=== PATIENT | female | born 1960 | race African-American/Black ===

== ENCOUNTER 2017-12-15 05:35 | Inpatient (IN) ==
[2017-11-30 12:25] LABS: Basophils % 0.6 % (0.0-0.8); Eosinophils # 0.1 10*3/uL (0.0-0.87); Eosinophils % 2.5 % (0.00-10.9); Hematocrit 40.6 VOL% (35.7-47.0); Hemoglobin 13.6 GM/DL (12.0-16.0); Immature Granulocytes % 0.2 %; Immature Granulocytes Absolute 0.01 #; Lymphocytes # 2.5 10*3/uL (1.4-4.0); Lymphocytes % 48.3 % (21.3-54.2); Mean Corpuscular HGB Conc 33.5 GM/DL (32-36); Mean Corpuscular Hemoglobin 28 PG (27-34); Mean Corpuscular Volume 83.2 FL (87-102); Monocytes # 0.4 10*3/uL (0.11-0.8); Monocytes % 8.3 % (1.7-12.7); Neutrophils # 2.1 10*3/uL (1.4-7.4); Neutrophils % 40.1 % (38.7-73.9); Platelet Count 249 T/CUMM (130-400); Red Blood Count 4.88 MC/CUMM (3.8-5.5); Red Cell Distribution Width 15.1 % (9.3-17.3); White Blood Count 5.2 T/CUMM (4-12)
[2017-11-30 12:35] LABS: INR 0.9; Partial Thromboplastin Time 27.3 SECS (0-40)
[2017-11-30 12:39] LABS: Apearance,Urine CLEAR (Clear); Bilirubin,Urine Negative (Negative); Blood, Urine Negative (Negative); Glucose,Urine (UA) Negative (Negative); Ketones,Urine Negative (Negative); Mucus,Urine Occasional /LPF (Occasional); Nitrite,Urine Negative (Negative); Protein,Urine Negative; RBC,Urine 1 /HPF (0-4); Squamous Epithelial Cell,Urine Occasional /HPF (0-10); Urine Color Yellow (Yellow); Urine Specific Gravity 1.016 (1.001-1.035); Urine Urobilinogen < 2.0 EU/DL (0.2-1.0); WBC,Urine 2 /HPF (0-6)
[2017-11-30 12:56] LABS: Alanine Aminotransferase 33 U/L (13-56); Albumin 3.9 G/DL (3.4-5.0); Alkaline Phosphatase 45 U/L (45-117); Aspartate Amino Transferase 24 U/L (0-37); Bilirubin,Total < 0.39 MG/DL (0.2-1.0); Blood Urea Nitrogen 19 MG/DL (7-18); Glucose 81 MG/DL (74-106); Osmolality,Calculated 279.4 MOS/KG (273-304); Potassium 4.3 MMOL/L (3.5-5.1); Sodium 140 MMOL/L (136-145); Total Protein 7.6 G/DL (6.4-8.3)
[2017-12-15] MEDS ORDERED: VANCOMYCIN INJ 1,000 MG in SODIUM CHLORIDE 0.9% 250 ML IV ONE (06:00)
[2017-12-15] MEDS ORDERED: ceFAZolin 2,000 MG in PREMIX 1 EACH IV ONE (06:00)
[2017-12-15] MEDS ORDERED: BUPIVACAINE SPINAL 0.75% 2 ML AMP SPINAL ONE (06:17)
[2017-12-15] MEDS ORDERED: ROPIVACAINE 0.5% 30 ML VIAL ONE (06:18)
[2017-12-15] MEDS ORDERED: VANCOMYCIN 1,000 MG VIAL ONE (06:27)
[2017-12-15] MEDS ORDERED: MIDAZOLAM 2 MG/2 ML VIAL ONE ×2 (06:40→09:03)
[2017-12-15] MEDS ORDERED: LIDOCAINE 1% 5 ML VIAL ONE (06:40)
[2017-12-15] MEDS ORDERED: BACITRACIN OINT 0.9 GM PACK TOP ONE (06:51)
[2017-12-15] MEDS ORDERED: LACTATED RINGERS 1,000 ML IV SCH (07:00)
[2017-12-15] MEDS ORDERED: oxyCODONE/ACETAMINOPHEN 5-325 MG TABLET PO PRN (08:33)
[2017-12-15] MEDS ORDERED: CETIRIZINE 10 MG TABLET PO PRN (08:33)
[2017-12-15] MEDS ORDERED: oxyCODONE IR 5 MG TABLET PO PRN ×2 (08:33)
[2017-12-15] MEDS ORDERED: MAGNESIUM HYDROXIDE SUSP 30 ML UDCUP PO PRN (08:33)
[2017-12-15] MEDS ORDERED: HYDROmorphone 2 MG/1 ML VIAL IV PRN ×2 (08:33)
[2017-12-15] MEDS ORDERED: ONDANSETRON 4 MG/2 ML VIAL IV PRN (08:33)
[2017-12-15] MEDS ORDERED: DEXAMETHASONE 10 MG/1 ML VIAL ONE (09:03)
[2017-12-15] MEDS ORDERED: PROPOFOL 500 MG/50 ML BOTTLE IV ONE (09:03)
[2017-12-15] MEDS ORDERED: KETOROLAC 30 MG/1 ML VIAL ONE (09:19)
[2017-12-15] MEDS: KETOROLAC 30 MG/1 ML VIAL IV SCH ×3 (09:20→20:45)
[2017-12-15] MEDS: LACTATED RINGERS 1,000 ML IV SCH ×3 (10:27→23:39)
[2017-12-15] MEDS: DOCUSATE SODIUM 100 MG CAPSULE PO SCH ×2 (10:40→20:44)
[2017-12-15] MEDS: ACETAMINOPHEN 500 MG TABLET PO SCH ×3 (12:49→23:38)
[2017-12-15] MEDS: ceFAZolin 2,000 MG in PREMIX 1 EACH IV SCH ×2 (13:09→20:46)
[2017-12-15] MEDS: ZALEPLON 5 MG CAPSULE PO PRN (20:44)
[2017-12-16] MEDS: KETOROLAC 30 MG/1 ML VIAL IV SCH (03:07)
[2017-12-16] MEDS: FONDAPARINUX 2.5 MG/0.5 ML SYRINGE SUBCUT SCH (03:09)
[2017-12-16 05:10] LABS: Basophils % 0.1 % (0.0-0.8); Hematocrit 31.8 VOL% (35.7-47.0); Hemoglobin 10.5 GM/DL (12.0-16.0); Immature Granulocytes % 0.6 %; Immature Granulocytes Absolute 0.07 #; Lymphocytes # 1.4 10*3/uL (1.4-4.0); Lymphocytes % 10.9 % (21.3-54.2); Mean Corpuscular Hemoglobin 27 PG (27-34); Mean Platelet Volume 11.7 FL (9.6-12.0); Monocytes # 0.9 10*3/uL (0.11-0.8); Monocytes % 6.9 % (1.7-12.7); Neutrophils # 10.1 10*3/uL (1.4-7.4); Neutrophils % 81.5 % (38.7-73.9); Platelet Count 224 T/CUMM (130-400); Red Blood Count 3.88 MC/CUMM (3.8-5.5); Red Cell Distribution Width 14.7 % (9.3-17.3); White Blood Count 12.4 T/CUMM (4-12)
[2017-12-16] MEDS: ACETAMINOPHEN 500 MG TABLET PO SCH (05:36)
[2017-12-16 05:53] LABS: Calcium 8.3 MG/DL (8.5-10.1)
[2017-12-16] MEDS ORDERED: TRANEXAMIC ACID 1,000 MG/10 ML VIAL ONE (07:32)
[2017-12-16] MEDS: DOCUSATE SODIUM 100 MG CAPSULE PO SCH ×2 (09:34→20:20)
[2017-12-16] MEDS: oxyCODONE/ACETAMINOPHEN 5-325 MG TABLET PO PRN ×3 (11:43→20:21)
[2017-12-16] MEDS: diphenhydrAMINE CAP 25 MG CAPSULE PO PRN ×2 (14:19→20:20)
[2017-12-16] MEDS: CELECOXIB 200 MG CAPSULE PO SCH (15:21)
[2017-12-17] MEDS: ZALEPLON 5 MG CAPSULE PO PRN (00:22)
[2017-12-17] MEDS: FONDAPARINUX 2.5 MG/0.5 ML SYRINGE SUBCUT SCH (00:23)
[2017-12-17] MEDS: oxyCODONE/ACETAMINOPHEN 5-325 MG TABLET PO PRN ×3 (00:23→08:38)
[2017-12-17] MEDS: diphenhydrAMINE CAP 25 MG CAPSULE PO PRN (04:27)
[2017-12-17 05:35] LABS: Basophils % 0.2 % (0.0-0.8); Eosinophils # 0.1 10*3/uL (0.0-0.87); Eosinophils % 0.7 % (0.00-10.9); Hematocrit 33.5 VOL% (35.7-47.0); Hemoglobin 11.1 GM/DL (12.0-16.0); Immature Granulocytes % 0.8 %; Immature Granulocytes Absolute 0.09 #; Lymphocytes # 2.4 10*3/uL (1.4-4.0); Lymphocytes % 22.4 % (21.3-54.2); Mean Corpuscular HGB Conc 33.1 GM/DL (32-36); Mean Corpuscular Hemoglobin 27 PG (27-34); Mean Corpuscular Volume 82.7 FL (87-102); Monocytes # 0.7 10*3/uL (0.11-0.8); Monocytes % 6.5 % (1.7-12.7); Neutrophils # 7.5 10*3/uL (1.4-7.4); Neutrophils % 69.4 % (38.7-73.9); Platelet Count 229 T/CUMM (130-400); Red Blood Count 4.05 MC/CUMM (3.8-5.5); Red Cell Distribution Width 15.2 % (9.3-17.3); White Blood Count 10.9 T/CUMM (4-12)
[2017-12-17] MEDS: CELECOXIB 200 MG CAPSULE PO SCH (08:38)
[2017-12-17] MEDS: DOCUSATE SODIUM 100 MG CAPSULE PO SCH (08:38)
[2017-12-17 11:39] VITALS: BP 144/73
== END 2017-12-17 12:21 | disposition home health service (06) | DRG 470 ==
LOC: N.OR 05:35 → N.SDSINP 05:36 → N.3E 08:33
PROVIDERS: ADMIT Orthopaedic Surgery; ATTEND Orthopaedic Surgery

== ENCOUNTER 2020-08-19 11:23 | Inpatient (IN) ==
[2020-08-19] MEDS ORDERED: ASPIRIN 325 MG TABLET PO STA (12:10)
[2020-08-19] MEDS ORDERED: METOPROLOL TARTRATE 5 MG/5 ML VIAL IV STA (12:11)
[2020-08-19 12:18] LABS: Basophils % 0.6 % (0.0-0.8); Eosinophils # 0.1 10*3/uL (0.0-0.87); Eosinophils % 1.8 % (0.00-10.9); Hematocrit 37.4 VOL% (35.7-47.0); Hemoglobin 12.9 GM/DL (12.0-16.0); Immature Granulocytes % 0.3 %; Immature Granulocytes Absolute 0.02 #; Lymphocytes % 44.9 % (21.3-54.2); Mean Corpuscular HGB Conc 34.5 GM/DL (32-36); Mean Platelet Volume 11.1 FL (9.6-12.0); Monocytes % 11.6 % (1.7-12.7); Neutrophils % 40.8 % (38.7-73.9); Platelet Count 237 T/CUMM (130-400); Red Blood Count 4.62 MC/CUMM (3.8-5.5); Red Cell Distribution Width 14.7 % (9.3-17.3); White Blood Count 6.6 T/CUMM (4-12)
[2020-08-19 12:36] LABS: Albumin 3.9 G/DL (3.4-5.0); Bilirubin,Total 0.7 MG/DL (0.2-1.0); Calcium 9.1 MG/DL (8.5-10.1); Osmolality,Calculated 272.8 MOS/KG (273-304); Total Protein 7.7 G/DL (6.4-8.2)
[2020-08-19 12:40] LABS: Potassium 2.4 MMOL/L (3.5-5.1)
[2020-08-19] MEDS ORDERED: POTASSIUM CHLORIDE 20 MEQ TABLET PO STA (12:51)
[2020-08-19] MEDS: POTASSIUM CHLORIDE RIDER 10 MEQ/100 ML PREMIX IV SCH ×4 (14:17→18:58)
[2020-08-19] MEDS ORDERED: GLUCAGON 1 MG VIAL IM PRN (15:02)
[2020-08-19] MEDS ORDERED: ONDANSETRON 4 MG/2 ML VIAL IV PRN (15:02)
[2020-08-19] MEDS ORDERED: DEXTROSE 50% 25 GM/50 ML VIAL IV PRN (15:02)
[2020-08-19] MEDS ORDERED: ZALEPLON 5 MG CAPSULE PO PRN (15:16)
[2020-08-19 16:27] LABS: Osmolality,Calculated 278.4 MOS/KG (273-304); Potassium 2.9 MMOL/L (3.5-5.1)
[2020-08-19] MEDS ORDERED: ENOXAPARIN 40 MG/0.4 ML SYRINGE SUBCUT SCH (18:00)
[2020-08-20] MEDS ORDERED: ACETAMINOPHEN 325 MG TABLET PO PRN (01:59)
[2020-08-20 04:09] LABS: Basophils % 0.8 % (0.0-0.8); Eosinophils # 0.1 10*3/uL (0.0-0.87); Eosinophils % 2.8 % (0.00-10.9); Hematocrit 33.6 VOL% (35.7-47.0); Hemoglobin 11.5 GM/DL (12.0-16.0); Immature Granulocytes % 0.2 %; Immature Granulocytes Absolute 0.01 #; Lymphocytes # 2.1 10*3/uL (1.4-4.0); Lymphocytes % 41.3 % (21.3-54.2); Mean Corpuscular HGB Conc 34.2 GM/DL (32-36); Mean Corpuscular Volume 82.4 FL (87-102); Mean Platelet Volume 11.1 FL (9.6-12.0); Monocytes % 14.4 % (1.7-12.7); Neutrophils % 40.5 % (38.7-73.9); Platelet Count 207 T/CUMM (130-400); Red Blood Count 4.08 MC/CUMM (3.8-5.5); Red Cell Distribution Width 14.8 % (9.3-17.3); White Blood Count 5.1 T/CUMM (4-12)
[2020-08-20 04:47] LABS: Albumin 3.1 G/DL (3.4-5.0); Bilirubin,Total 0.7 MG/DL (0.2-1.0); Calcium 8.8 MG/DL (8.5-10.1); Osmolality,Calculated 281.4 MOS/KG (273-304); Potassium 2.9 MMOL/L (3.5-5.1); Risk Ratio 2.38; Total Protein 6.6 G/DL (6.4-8.2); VLDL CHOLESTEROL 19.8 MG/DL
[2020-08-20] MEDS: POTASSIUM CHLORIDE 20 MEQ TABLET PO PRN ×2 (05:32→07:38)
[2020-08-20] MEDS ORDERED: PANTOPRAZOLE 40 MG TABLET PO SCH (09:00)
[2020-08-20] MEDS: POTASSIUM CHLORIDE 20 MEQ TABLET PO SCH ×2 (09:34→12:40)
[2020-08-20 12:36] VITALS: BP 139/74
[2020-08-20 14:00] LABS: Calcium 8.8 MG/DL (8.5-10.1); Osmolality,Calculated 280.4 MOS/KG (273-304); Potassium 3.8 MMOL/L (3.5-5.1)
== END 2020-08-20 14:47 | disposition home or self-care (01) | DRG 641 ==
LOC: N.ED 11:23 → N.EDINP 15:02 → SUATTDRO 15:02 → N.TELEN 18:20
PROVIDERS: ADMIT Family Medicine; ATTEND Internal Medicine Geriatric Medicine